=== PATIENT | female | born 1985 | race Caucasian/White ===

== ENCOUNTER 2019-05-25 09:58 | Emergency (ER) | payer SELFPAY ==
[2019-05-25 10:28] VITALS: BP 118/72; PULSE 88; RESP 18; TEMP 37; O2SAT 100
--- NOTE | 2019-05-25 10:54 | ED.NAVMDI ---
HPI - Nausea/Vomiting/Diarrhea General Chief complaint: Nausea/Vomiting/Diarrhea Stated complaint: Diarrhea/Abdominal Pains History of Present Illness HPI Narrative: This is a 33-year-old that comes in complaining nausea diarrhea for the past week and severe upper quadrant bilateral no serious cause of abdominal pain. Patient states for the past 7 days she has had 5-6 diarrheas every day that is watery. Patient denies being able to eat much due to the diarrhea states that when she does eat she is eating the brat diet change. Patient denies being able to take her blood pressure medicine due to she is worried about the diarrhea Related Data Home Medications Medication Instructions Recorded Confirmed amlodipine 5 mg PO DAILY 05/25/19 05/25/19 Allergies Allergy/AdvReac Type Severity Reaction Status Date / Time No Known Allergies Allergy Verified 05/25/19 10:48 Review of Systems Review of Systems: Narrative: CONSTITUTIONAL: Denies fever, chills, or sweats. EYES: Denies visual changes, redness, or discharge. ENT: Denies rhinorrhea, congestion, sore throat, or otalgia. CARDIOVASCULAR:Denies chest pain, palpitations, or edema. RESPIRATORY: Denies cough or dyspnea. GASTROINTESTINAL: Reports severe abdominal pain, nausea, vomiting, or diarrhea 5x a day for the past 7 days. GENITOURINARY: Denies dysuria or hematuria. SKIN:[Denies rash or itching. MUSCULOSKELETAL:Denies back pain, joint pain, or myalgia. NEUROLOGIC: Denies headache, numbness, or weakness. PSYCHIATRIC:Denies anxiety or depression PMFSH Comments At time as signature, I have reviewed and agree with nursing past medical, social, surgical and family history. Please see nursing chart for further information. There is no relevant family history pertinent to the presenting complaint. Exam Narrative: Exam Narrative: GENERAL:Well-appearing, well-nourished, and in no acute distress. HEAD:Normocephalic, atraumatic. EYES: PERRLA and EOMI. ENT: Nares clear, no rhinorrhea or epistaxis. Mucous membranes moist. NECK: Supple. CHEST: Clear to auscultation. No respiratory distress. HEART: Regular rate and rhythm. No murmur heard. Normal peripheral pulses. ABDOMEN: Soft, tender upper bilateral quads, nondistended, normal active bowel sounds. EXTREMITIES: Normal range of motion. No edema. SKIN: Warm, dry, no rash. NEURO: No focal deficits. Alert and oriented x3. Patient urine is within normal limits Course Vital Signs Vital signs: Vital Signs Temperature 98.6 F 05/25/19 10:28 Pulse Rate 88 05/25/19 10:28 Respiratory Rate 18 05/25/19 10:28 Blood Pressure 118/72 05/25/19 10:28 Pulse Oximetry 100 05/25/19 10:28 Temperature 98.6 F 05/25/19 10:28 Pulse Rate 88 05/25/19 10:28 Respiratory Rate 18 05/25/19 10:28 Blood Pressure 118/72 05/25/19 10:28 Pulse Oximetry 100 05/25/19 10:28 MDM - Nausea/Vomiting/Diarrhea Lab Data Labs: UCG Bedside Result Negative Reference Range: Negative Urine Glucose Negative Reference Range: Negative Urine Bilirubin 1+ Reference Range: Negative Urine Ketone Negative Reference Range: Negative Urine Specific [place] 1.025 Reference Range:1.001-1.035 Urine Blood Negative Reference Range: Negative * * Urine pH 6.5 Reference Range: 5.0-9.0 Urine Protein 1+ Reference Range: Negative Urine Urobilinogen 0.2 Reference Range: 0.2-1.0 Urine Nitrate Negative Reference Range: Negative Urine Leukocyte Negative Reference Range: Negative Urine Color Yellow Reference Range: Yellow Urine Characteristics Clear Discharge Plan Discharge Clini
== END 2019-05-25 11:35 | disposition short-term general hospital (02) ==
PROVIDERS: Emergency Provider Nurse Practitioner Family
DX: R10.10 Upper abdominal pain, unspecified (principal); I10 Essential (primary) hypertension
CPT/HCPCS: 81003; 81025; 99212; G0463

== ENCOUNTER 2020-05-08 09:18 | Emergency (ER) | payer OTHER, SELFPAY ==
--- NOTE | 2020-05-08 09:27 | ED.URI ---
HPI - URI/Sore Throat General Chief Complaint: Upper Respiratory Infection Stated Complaint: congestion, ear and sore throat Time Seen by Provider: 05/08/20 09:27 Source: patient and RN notes reviewed History of Present Illness HPI Narrative: Patient is a 34-year-old female who presents the urgent care with complaints of sinus congestion, bilateral ear pain, sore throat and mild cough. Patient states that it started on Saturday and she received a rapid Covid test yesterday which was negative. Patient states that no one else in the home has been sick. Denies of any known exposure to Covid or strep. Patient states that she has not taken anything [id number] for her symptoms considering she is 25 weeks . Patient denies of any fever, chills, nausea, vomiting. No other acute complaints. No acute distress noted. Patient aware of the plan of care. Some parts of this dictation were generated by voice recognition software and may contain typographical and/or grammatical inaccuracies. Related Data Home Medications Medication Instructions Recorded Confirmed Daily 1 tablet PO DAILY 05/08/20 05/08/20 Allergies Allergy/AdvReac Type Severity Reaction Status Date / Time No Known Allergies Allergy Verified 05/08/20 09:35 Review of Systems Review of Systems: Narrative: CONSTITUTIONAL: Denies fever, chills, or sweats. EYES: Denies visual changes, redness, or discharge. ENT: Reports of postnasal drainage, sinus congestion, sore throat and bilateral otalgia CARDIOVASCULAR: Denies chest pain, palpitations, or edema. RESPIRATORY: Reports a mild intermittent nonproductive cough without dyspnea GASTROINTESTINAL: Denies abdominal pain, nausea, vomiting, or diarrhea. GENITOURINARY: Denies dysuria or hematuria. SKIN: Denies rash or itching. MUSCULOSKELETAL: Denies back pain, joint pain, or myalgia. NEUROLOGIC: Denies headache, numbness, or weakness. All other systems reviewed are negative, except as documented in HPI. PMFSH Comments At the time of my signature, I reviewed and agree with the nursing past medical, surgical, social, and family history. There is no relevant family history pertinent to the patient complaint. Exam Narrative: Exam Narrative: GENERAL: This is a well-nourished, well-developed patient, in no apparent distress. HEAD: normocephalic, atraumatic. EYES: PERRL. Sclera clear/white. Vision is grossly intact. EARS: External ears normal, auditory canals clear and without drainage, TMs normal without perforation. Hearing grossly intact. NOSE: External nose normal with no obvious nasal discharge, nares without redness, clear rhinorrhea. THROAT: Mucous membranes moist, moderate postnasal drainage with mild erythema noted posterior oropharynx without exudate or ulceration NECK: Neck supple CARDIOVASCULAR: Regular rate and rhythm without murmurs, gallops, or rubs. RESPIRATORY: Clear to auscultation. Breath sounds equal bilaterally. No wheezes, rales, or rhonchi. SKIN: warm, intact with no suspicious lesions or rash, good texture and turgor. NEURO: awake, alert, and oriented to person, place and time. There were no obvious focal neurologic abnormalities. EXTREMITIES: No clubbing, cyanosis, or edema. Course Vital Signs Vital signs: Vital Signs Temperature 98.0 F 05/08/20 09:28 Pulse Rate 100 05/08/20 09:28 Respiratory Rate 20 05/08/20 09:28 Blood Pressure 125/62 05/08/20 09:28 Pulse Oximetry 100 05/08/20 09:28 Temperature 98.0 F 05/08/20 09:28 Pulse Rate 100 05/08/20 09:28 Respiratory Rate 20 05/08/20 09:28 Blood Pressure 125/62 05/08/20 09:28 Pulse Oximetry 100 05/08/20 09:28 Reviewed MDM - URI/Sore Throat MDM Narrative Medical decision making narrative: Reviewed lab results with the patient. She is aware that strep swab was negative. Educated patient on culture we will call within 72 hours if culture is positive and antibiotics are necessary. Advised the patient
[2020-05-08 09:28] VITALS: BP 125/62; PULSE 100; RESP 20; TEMP 36.7; O2SAT 100
== END 2020-05-08 09:51 | disposition home or self-care (01) ==
PROVIDERS: Emergency Provider Nurse Practitioner Family
DX: J32.9 Chronic sinusitis, unspecified (principal); J02.9 Acute pharyngitis, unspecified; I10 Essential (primary) hypertension
CPT/HCPCS: 87081; 87880; 99213; G0463

== ENCOUNTER 2023-02-14 16:54 | Emergency (ER) | payer OTHER, SELFPAY ==
[2023-02-14 17:30] VITALS: BP 122/84; PULSE 84; RESP 18; TEMP 36.7; O2SAT 99
--- NOTE | 2023-02-14 18:16 | ED.URI ---
HPI - URI/Sore Throat General Chief Complaint: Upper Respiratory Infection Stated Complaint: Headache/Cough/Congestion Time Seen by Provider: 02/14/23 18:16 Source: patient, RN notes reviewed and old records reviewed Mode of arrival: ambulatory Limitations: no limitations History of Present Illness HPI Narrative: 37-year-old female who presents to [facility] with complaints of sore throat, cough and congestion, headache,body aches and fatigue for the past 4 days.Patient reports no shortness of breath with repirations even and nonlabored, SAO2 99% on room air. Patient reports that she has been martha POLLARD elicited complaint: cough, sore throat, rhinorrhea, nasal congestion, sinus pain and other (headache) Onset (ago): day(s) (4) Pain scale (0-10): 5 Able to tolerate fluids by mouth: Yes Treatments prior to arrival: acetaminophen and ibuprofen Related Data Home Medications Medication Instructions Recorded Confirmed No Home Medications 02/14/23 02/14/23 Allergies Allergy/AdvReac Type Severity Reaction Status Date / Time No Known Allergies Allergy Verified 02/14/23 17:52 Review of Systems Review of Systems: CONSTITUTIONAL: Reports malaise, chills, sweats, unknown if fever. EYES: Denies visual changes, redness, or discharge. ENT: Reports rhinorrhea, congestion, sinus pain,no otalgia and positive for sore throat. CARDIOVASCULAR: Denies chest pain, palpitations, or edema. RESPIRATORY: Reports cough.? Denies dyspnea. GASTROINTESTINAL: Denies abdominal pain, nausea, vomiting,reports few episodes of diarrhea SKIN: Denies rash or itching. MUSCULOSKELETAL:Reports myalgia. NEUROLOGIC:Reports headache. All systems reviewed & are unremarkable except as noted in HPI and below PMFSH Past Medical History Medical History (Updated 02/18/23 @ 07:56 by Bea Mcneil NP) Anxiety and depression Diverticulitis Surgical History Surgical History (Updated 02/18/23 @ 07:39 by Bea Mcneil NP) History of laparoscopy Social History Social History (Updated 02/18/23 @ 07:40 by Bea Mcneil NP) Smoking status: Never smoker Alcohol intake: unknown Substance use type: does not use Living arrangements: with family Gender identity (if verbalized by the patient): Female Comments At time of signature, agree with nursing past medical, surgical, social and family history. There is no relevant family history pertinent to the presenting complaint Exam Narrative: GENERAL: Well-appearing, well-nourished, and in no acute distress. HEAD: Normocephalic EYES: PERRLA, conjunctivae clear ENT: Nares clear, turbinates edematous and erythematous, clear discharge. Mucous membranes moist. TM pearly cummins with dull light reflex bilaterally; no tragal tenderness. Oropharynx erythematous without lesions. Tonsils not enlarged and without exudate, no drooling, no hoarseness, no trismus, uvula midline.post nasal drainage NECK: Supple. No lymphadenopathy CHEST: Clear to auscultation, breath sounds equal. No wheezing, rhonchi, rales, or stridor. No respiratory distress, speaks in full sentences.cough SAO2 99% on room air HEART: Regular rate and rhythm. No murmur heard. SKIN: Warm, dry, no rash. NEURO: Alert and oriented x3. PSYCH: Normal mood and affect Course Course Emergency Course: Patient is aware of diagnosis, understands and agrees to treatment plan.? Anticipatory guidance given.? Patient agrees to follow-up as directed and is aware of reasons to seek care at the emergency department. Portions of this record may have been created with voice recognition software Level of Care: Express Care Visit Vital Signs Vital signs: Vital Signs Temperature 36.7 C 02/14/23 17:30 Pulse Rate 84 02/14/23 17:30 Respiratory Rate 18 02/14/23 17:30 Blood Pressure 122/84 02/14/23 17:30 Pulse Oximetry 99 02/14/23 17:30 Temperature 36.7 C 02/14/23 17:30 Pulse Rate 84
== END 2023-02-14 19:05 | disposition home or self-care (01) ==
PROVIDERS: Emergency Provider Registered Nurse
DX: J06.9 Acute upper respiratory infection, unspecified (principal); Z20.822 Contact with and (suspected) exposure to COVID-19
CPT/HCPCS: 87081; 87426; 87804; 87880; 99213; C9803; G0463

== ENCOUNTER 2024-02-16 16:04 | Emergency (ER) | payer OTHER, SELFPAY ==
[2024-02-16 16:08] VITALS: BP 124/75; PULSE 82; RESP 20; TEMP 36.4; O2SAT 100
[2024-02-16 16:17] VITALS: BP 124/75; PULSE 82; RESP 20; TEMP 36.4; O2SAT 100
--- NOTE | 2024-02-16 16:25 | ED.GENADULT ---
HPI - General Adult General Chief complaint: Nausea/Vomiting/Diarrhea Stated complaint: nausea/possible preg Time Seen by Provider: 02/16/24 16:20 Source: patient, RN notes reviewed and old records reviewed Mode of arrival: ambulatory Limitations: no limitations History of Present Illness HPI narrative: 38 year old female who presents to [facility] care with complaints of nausea with some vomiting at times since . Patient reports that she has also felt lightheaded, had tiredness for the past 4-5 days, denies any fevers or any abdominal pain, no ear pain or any sore throat, states is urinating without difficulty. Patient reports that her menses have been irregular since she went off her depo shots with last menses on December 13. MD complaint: nausea with some vomiting. Onset (ago): day(s) (4-5 days) Treatments prior to arrival: none Related Data Allergies Allergy/AdvReac Type Severity Reaction Status Date / Time No Known Allergies Allergy Verified 02/16/24 16:25 Review of Systems Review of Systems: CONSTITUTIONAL: Denies fever, chills, or sweats. EYES: Denies visual changes, redness, or discharge. ENT: Denies rhinorrhea, congestion, sore throat, or otalgia. CARDIOVASCULAR: Denies chest pain, palpitations, or edema. RESPIRATORY: Denies cough or dyspnea. GASTROINTESTINAL: Denies abdominal pain,positive for nausea, vomiting, no diarrhea. GENITOURINARY: Denies dysuria or hematuria. SKIN: Denies rash or itching. MUSCULOSKELETAL: Denies back pain, joint pain, or myalgia. NEUROLOGIC: Denies headache, numbness, or weakness. PSYCHIATRIC:History of anxiety or depression. All systems reviewed & are unremarkable except as noted in HPI and below PMFSH Past Medical History Medical History Anxiety and depression Diverticulitis Surgical History Surgical History History of laparoscopy Social History Social History Smoking status: Never smoker Alcohol intake: unknown Substance use type: does not use Living arrangements: with family Gender identity (if verbalized by the patient): Female Comments At time of signature, agree with nursing past medical, surgical, social and family history. There is no relevant family history pertinent to the presenting complaint Exam Narrative: GENERAL: Well-appearing, well-nourished, and in no acute distress. HEAD: Normocephalic, atraumatic. EYES: PERRLA and EOMI. ENT: Nares clear, no rhinorrhea or epistaxis. Mucous membranes moist. NECK: Supple.no lymphadenopathy CHEST: Clear to auscultation. No respiratory distress.SAO2 100% on room air HEART: Regular rate and rhythm. No murmur heard. Normal peripheral pulses. ABDOMEN: Soft, nontender, nondistended, normal active bowel sounds. report nausea and vomiting EXTREMITIES: Normal range of motion. No edema. SKIN: Warm, dry, no rash. NEURO: No focal deficits. Alert and oriented x3. Course Course Emergency Course: Patient is aware of diagnosis, understands and agrees to treatment plan.? Anticipatory guidance given.? Patient agrees to follow-up as directed and is aware of reasons to seek care at the emergency department. Portions of this record may have been created with voice recognition software Level of Care: Express Care Visit Vital Signs Vital signs: Vital Signs Temperature 36.4 C L 02/16/24 16:08 Pulse Rate 82 02/16/24 16:08 Respiratory Rate 20 02/16/24 16:08 Blood Pressure 124/75 02/16/24 16:08 Pulse Oximetry 100 02/16/24 16:08 Oxygen Delivery Room Air 02/16/24 16:08 Temperature 36.4 C L 02/16/24 16:17 Pulse Rate 82 02/16/24 16:17 Respiratory Rate 20 02/16/24 16:17 Blood Pressure 124/75 02/16/24 16:17 Pulse Oximetry 100 02/16/24 16:17 Oxygen Delivery Room Air 02/16/24 16:17 Reviewed Medical Decision Making MDM Narrative Medical decision making narrative: Exam findings and imaging show no acute concerns or changes; patient is non-toxic appearing and is in no distress.? Patient is appropriate for outpatient treatment and follow-up Differential Diagnosis Differential Diagnosis: , nausea and vomiting associated with ,9 weeks Medical Records Medical records reviewed: Yes I reviewed the external patient's medical records. Vital Signs Vital Signs: Vital Signs Temperature 36.4 C L 02/16/24 16:08 Pulse Rate 82 02/16/24 16:08 Respiratory Rate 20 02/16/24 16:08 Blood Pressure 124/75 02/16/24 16:08 Pulse Oximetry 100 02/16/24 16:08 Oxygen Delivery Room Air 02/16/24 16:08 Temperature 36.4 C L 02/16/24 16:17 Pulse Rate 82 02/16/24 16:17 Respiratory Rate 20 02/16/24 16:17 Blood Pressure 124/75 02/16/24 16:17 Pulse Oximetry 100 02/16/24 16:17 Oxygen Delivery Room Air 02/16/24 16:17 reviewed Lab Data Lab results reviewed: Yes I reviewed the patient's lab results. Lab results narrative: bedside urine positive Critical Care Time Critical Care Time Critical Care Time: No Discharge Plan Discharge Clinical Impression: Nausea/vomiting in Qualifiers: Weeks of gestation: 9 weeks Qualified Code(s): Z3A.09 - 9 weeks gestation of Patient Disposition: Home, Self-Care Condition: Stable Instructions: Antibiotic Form, (ED) Additional Instructions: you have tested positive for Nausea and vomiting related to Zofran ordered for nausea and vomiting Tylenol only for pain or fever Make appointment with DIRECTOR [employer] [facility] for care List given to patient in regards to medication that is safe to take during If your symptoms persist, change or worsen significantly before you can contact your personal physician then please, without delay, go to the emergency department for further evaluation. Follow-up with PCP in 7-10 days or sooner if needed Prescriptions: New ondansetron 4 mg tablet,disintegrating 4 mg PO Q6H PRN (Reason: nausea and vomiting) Qty: 14 0RF Follow-up/Referrals: PHYSICIAN,METALLURGICAL LAB TECHNICIAN [Primary Care Provider] - Stand Alone Forms: Work/School Release IP Time of Disposition: 16:47 Quality Fabienne Coma Scale Eyes: Open Verbal: Oriented and Alert Motor: Follows Commands Fabienne Coma Total Score: 15
[2024-02-16 16:36] LABS: BEDSIDEPREGUCG Positive (Negative)
== END 2024-02-16 16:50 | disposition home or self-care (01) ==
PROVIDERS: Emergency Provider Registered Nurse
DX: O21.9 Vomiting of pregnancy, unspecified (principal); Z3A.09 9 weeks gestation of pregnancy
CPT/HCPCS: 81025; 99213; G0463